=== PATIENT | male | born 2000 | race Two or more races ===

== ENCOUNTER 2022-08-29 22:24 | Emergency (ER) | payer OTHER ==
[~2022-08-29] VITALS: Ht 182.9 cm; Wt 88.5 kg
[2022-08-30] VITALS: BP 140/75
[2022-08-30] MEDS ORDERED: CEPH500T PO (00:24)
[2022-08-30] MEDS ORDERED: SULF1TAB48 PO (00:24)
[2022-08-30] MEDS ORDERED: IBUP-1957 PO (00:24)
[2022-08-30] MEDS ORDERED: ONDA4TAB5 PO (00:24)
--- NOTE | 2022-08-30 00:30 | NUR ---
Patient discharged to home in stable condition. Written and verbal after care instructions given. Patient verbalizes understanding of instruction.
== END 2022-08-30 00:31 | disposition home or self-care (01) ==
LOC: ER 22:28
DX: L02.31 Cutaneous abscess of buttock (principal); K21.9 Gastro-esophageal reflux disease without esophagitis; Z79.899 Other long term (current) drug therapy

== ENCOUNTER 2022-09-02 14:34 | Emergency (ER) | payer OTHER ==
[~2022-09-02] VITALS: Ht 182.9 cm; Wt 88.5 kg
[~2022-09-02 14:34] MED LIST: CEPH500T PO; IBUP-1957 PO; ONDA4TAB5 PO; SULF1TAB48 PO
[2022-09-02 14:55] VITALS: BP 119/68
[2022-09-02] MEDS ORDERED: LIDO30AD10 TP (16:59)
--- NOTE | 2022-09-02 17:13 | NUR ---
Patient discharged to home in stable condition. Written and verbal after care instructions given. Patient verbalizes understanding of instruction.
== END 2022-09-02 17:13 | disposition home or self-care (01) ==
LOC: ER 14:35
DX: L02.31 Cutaneous abscess of buttock (principal); K21.9 Gastro-esophageal reflux disease without esophagitis; Z60.2 Problems related to living alone; Z79.899 Other long term (current) drug therapy

== ENCOUNTER 2025-02-15 17:25 | Emergency (ER) | payer SELFPAY ==
[~2025-02-15] VITALS: Ht 182.9 cm; Wt 97.5 kg
[~2025-02-15 17:25] MED LIST changes: +LIDO30AD10 TP
[2025-02-15 17:36] VITALS: BP 149/74; TEMP 98.1
[2025-02-15] MEDS ORDERED: ACETAMINOPHEN 325 MG TABLET ONE (18:51)
[2025-02-15] MEDS ORDERED: KETOROLAC TROMETHAMINE 15 MG/ML VIAL ONE (18:51)
[2025-02-15] MEDS ORDERED: LIDOCAINE 5% (PATCH) 1 EA PATCH TP ONE (18:51)
[2025-02-15] MEDS: KETOROLAC TROMETHAMINE 15 MG/ML VIAL IM ONE (18:56)
[2025-02-15] MEDS: ACETAMINOPHEN 325 MG TABLET PO ONE (18:57)
[2025-02-15] MEDS: LIDOCAINE 5% (PATCH) 1 EA PATCH TP SCH (18:59)
[2025-02-15 19:00] VITALS: O2SAT 100
[2025-02-15] MEDS ORDERED: LIDO30AD10 TP (19:39)
== END 2025-02-15 20:22 | disposition home or self-care (01) ==
LOC: ER 17:28
DX: S39.012A Strain of muscle, fascia and tendon of lower back, initial encounter (principal); R10.9 Unspecified abdominal pain; K21.9 Gastro-esophageal reflux disease without esophagitis; Z60.2 Problems related to living alone; Z79.1 Long term (current) use of non-steroidal anti-inflammatories (NSAID); X58.XXXA Exposure to other specified factors, initial encounter; Y93.89 Activity, other specified; Y92.89 Other specified places as the place of occurrence of the external cause; Y99.8 Other external cause status
CPT/HCPCS: 99283; 96372; 72110; J1885